=== PATIENT | male | born 1930 | race Caucasian/White ===

== ENCOUNTER 2017-08-02 13:20 | Observation (INO) ==
--- NOTE | 2017-08-02 13:57 | Emergency Department Note ---
Disposition Clinical Impression: Compression fracture Disposition: Admitted As Inpatient Condition: Good Time of Disposition: 13:59 Back Pain HPI - General Chief Complaint: ED Back Pain/Injury Stated Complaint: "broken back" Time Seen by Provider: 08/02/17 13:34 Source: patient, family Limitations: no limitations Nursing Notes Reviewed: Yes Vital Signs Reviewed: Yes - History of Present Illness HPI Narrative: 87-year-old comes in complaining of back pain was seen by pain management yesterday had MRI shows compression fractures of L1-L2 3. Patient was then here to be admitted for kyphoplasty tomorrow. Pt Subjective Complaint: back pain Onset (ago): day(s) Duration: constant Similar Symptoms Previously: Yes Location: lumbar spine Pain Severity: moderate Quality: aching Radiation: none Improves with: none Worsens with: none Associated symptoms: Reports: denies other symptoms - Related Data Home Medications Medication Instructions Recorded Confirmed Polyethylene Glycol 3350 [MiraLAX] 17 gm PO DAILY 03/21/17 08/02/17 Simvastatin [Zocor] 20 mg PO HS 03/21/17 08/02/17 Tamsulosin [Flomax] 0.4 mg PO DAILY 03/21/17 08/02/17 Aspirin 162 mg PO QAM 08/02/17 08/02/17 Cholecalciferol (D-3) [Vitamin D] 1,000 unit PO DAILY 08/02/17 08/02/17 DULoxetine [Cymbalta] 30 mg PO DAILY 08/02/17 08/02/17 Mv-Mn/FA/Vit K/Lycop/Lut/Coq10 1 tab PO DAILY 08/02/17 08/02/17 [Daily Multivitamin Capsule] [place] 7.5-325 mg 1 tab PO TID PRN 08/02/17 Selenium 100 mcg PO DAILY 08/02/17 08/02/17 hydroCHLOROthiazide 12.5 mg PO DAILY 08/02/17 08/02/17 [Hydrochlorothiazide] Allergies Allergy/AdvReac Type Severity Reaction Status Date / Time No Known Allergies Allergy Verified 04/27/17 11:22 All systems ED: reviewed and negative except as stated. Constitutional: Denies: fever, chills, weakness, weight change Eyes: Denies: eye pain, eye discharge, vision change ENT ED: Denies: ear pain, throat pain, dental pain, hearing loss, epistaxis, congestion, dysphagia Cardiovascular: Denies: chest pain, palpitations, dyspnea on exertion, edema, syncope Respiratory: Denies: cough, dyspnea, wheezes, hemoptysis, stridor Gastrointestinal: Denies: abdominal pain, nausea, vomiting, diarrhea, constipation, hematemesis, melena, hematochezia Genitourinary: Denies: urgency, dysuria, frequency, hematuria Musculoskeletal: Reports: back pain. Denies: neck pain, arthralgia, myalgia Integumentary: Denies: rash, abrasion, lesions Neurological: Denies: headache, weakness, numbness, paresthesias, confusion, abnormal gait, vertigo Psychiatric: Denies: anxiety, depression, suicidal thoughts, homicidal thoughts , auditory hallucinations, visual hallucinations Endocrine: Denies: fatigue Hematological/Lymphatic: Denies: easy bleeding, easy bruising Allergic/Immunologic: Denies: facial swelling, urticaria Past Medical History - Past Medical History Medical history: Reports: arthritis, cancer, coronary artery disease Surgical history: Reports: cholecystectomy Psychiatric history: Reports: no psych history - Social History Smoking Status: Never smoker Smokeless Tobacco Status: No Alcohol use: Reports: none Drug use: Reports: none Physical Exam - General Limitations: no limitations General appearance: alert - Head Head exam: atraumatic, normocephalic, normal inspection - Eye Eye exam: Present: normal appearance, PERRL, EOMI - ENT ENT exam: normal exam, normal oropharynx, mucous membranes moist - Neck Neck exam: Present: normal inspection, full ROM, trachea midline - Cardiovascular Cardiovascular exam: Present: regular rate, normal rhythm, normal heart sounds - Abdominal Exam Abdominal exam: Present: soft, Non-Tender. Absent: tenderness, distention, guarding, rebound, rigidity - Extremities Exam Extremities exam: Present: normal inspection, full ROM. Absent: tenderness, pedal edema - Expanded Lower Extremity Exam Neurovascular/Tendon exam: Absent: motor deficit, sensory deficit, tendon deficit Gait: observed and normal - Back Exam Back exam: Present: normal inspection, full ROM. Absent: tenderness - Neurological Exam Neurological exam: Present: alert, oriented X3 - Psychiatric Psychiatric exam: Present: normal affect, normal mood - Skin Skin exam: Present: warm, dry, intact, normal color Course - Reevaluation(s) Reevaluation #1: 87-year-old who has compression fractures and is scheduled for surgery will be admitted. Time: 13:57 - Consultations Consultation #1: Discussed with Dr. Moore, will see in consult. Time: 13:57 Consultation #2: Discussed with Dr. Dawkins, admit. Time: 14:13 Vital Signs Temperature 97.5 F L 08/02/17 13:28 Pulse Rate 69 08/02/17 13:28 Respiratory Rate 14 08/02/17 13:28 Blood Pressure 125/74 08/02/17 13:28 O2 Sat by Pulse Oximetry 98 08/02/17 13:28 Temperature 97.5 F L 08/02/17 13:28 Pulse Rate 69 08/02/17 13:28 Respiratory Rate 14 08/02/17 13:28 Blood Pressure 125/74 08/02/17 13:28 O2 Sat by Pulse Oximetry 98 08/02/17 13:28 Oxygen Delivery Oxygen Delivery Room Air Back Pain/Injury - Lab Data Lab results reviewed: Yes I reviewed the patient's lab results. Result diagrams: 08/02/17 14:07 08/02/17 14:07 Lab Results 08/02/17 08/02/17 08/02/17 Range/Units 14:07 14:07 14:07 WBC 7.6 (4.3-11.1) K/mcL RBC 4.38 (4.19-5.50) M/mcL Hgb 13.3 (12.9-16.9) g/dL Hct 40.8 (37.5-50.1) % MCV 93.2 (83.0-100.0) fL MCH 30.4 (28.0-33.3) pg MCHC 32.6 (31.6-35.5) g/dL RDW 14.9 H (11.5-14.5) % Plt Count 270 (140-400) K/mcL MPV 9.3 L (9.4-12.4) fL Immature Gran % 0.3 (0-4) % Seg Neutrophils % 64.6 % Lymphocytes % 24.5 % Monocytes % 7.6 % Eosinophils % 2.5 % Basophils % 0.5 % Neutrophils # 4.9 (1.6-8.9) K/mcL Lymphocytes # 1.9 (0.6-4.6) K/mcL Monocytes # 0.6 (0.0-1.3) K/mcL Eosinophils # 0.2 (0.0-0.6) K/mcL Basophils # 0.0 (0.0-0.2) K/mcL PT 12.2 H (9.4-12.1) Seconds INR 1.1 APTT 32.0 (26.0-36.0) Seconds Sodium 140 (136-145) mEq/L Potassium 4.1 (3.5-5.1) mEq/L Chloride 108 H (98-107) mEq/L Carbon Dioxide 28 (23-29) mEq/L BUN 18 (8-23) mg/dL Creatinine 1.19 (0.70-1.30) mg/dL Est GFR ( Amer) > 60 (> 60) Est GFR (Non-Af Amer) 58 L (> 60) BUN/Creatinine Ratio 15 (6-26) Glucose 115 H (70-105) mg/dL Calculated Osmolality 293 (280-300) Calcium 9.8 (8.6-10.3) mg/dL Urine Color (Yellow) Urine Clarity (Clear) Urine pH (5.0-8.0) pH Units Ur Specific [place] (1.010-1.025) Urine Protein (Neg-Trace) mg/dL Urine Glucose (UA) (Normal) mg/dL Urine Ketones (Negative) mg/dL Urine Blood (Negative) Urine Nitrite (Negative) Urine Bilirubin (Negative) Urine Urobilinogen (Normal) mg/dL Ur Leukocyte Esterase (Negative) Urine Microscopic RBC (0-3) per hpf Urine Microscopic WBC (0-3) per hpf Ur Squamous Epith Cells (None-Few) per lpf Calcium Oxalate Crystal Amorphous Sediment (Few) Urine Bacteria (None-Few) per hpf Hyaline Casts (None-Few) per lpf Urine Mucus (Few) Ur Culture Indicated? (NO) 08/02/17 Range/Units 14:39 WBC (4.3-11.1) K/mcL RBC (4.19-5.50) M/mcL Hgb (12.9-16.9) g/dL Hct (37.5-50.1) % MCV (83.0-100.0) fL MCH (28.0-33.3) pg MCHC (31.6-35.5) g/dL RDW (11.5-14.5) % Plt Count (140-400) K/mcL MPV (9.4-12.4) fL Immature Gran % (0-4) % Seg Neutrophils % % Lymphocytes % % Monocytes % % Eosinophils % % Basophils % % Neutrophils # (1.6-8.9) K/mcL Lymphocytes # (0.6-4.6) K/mcL Monocytes # (0.0-1.3) K/mcL Eosinophils # (0.0-0.6) K/mcL Basophils # (0.0-0.2) K/mcL PT (9.4-12.1) Seconds INR APTT (26.0-36.0) Seconds Sodium (136-145) mEq/L Potassium (3.5-5.1) mEq/L Chloride (98-107) mEq/L Carbon Dioxide (23-29) mEq/L BUN (8-23) mg/dL Creatinine (0.70-1.30) mg/dL Est GFR ( Amer) (> 60) Est GFR (Non-Af Amer) (> 60) BUN/Creatinine Ratio (6-26) Glucose (70-105) mg/dL Calculated Osmolality (280-300) Calcium (8.6-10.3) mg/dL Urine Color Dark Yellow (Yellow) Urine Clarity Hazy (Clear) Urine pH 5.5 (5.0-8.0) pH Units Ur Specific [place] 1.025 (1.010-1.025) Urine Protein 30 H (Neg-Trace) mg/dL Urine Glucose (UA) Normal (Normal) mg/dL Urine Ketones Negative (Negative) mg/dL Urine Blood Moderate H (Negative) Urine Nitrite Negative (Negative) Urine Bilirubin Small H (Negative) Urine Urobilinogen 2.0 H (Normal) mg/dL Ur Leukocyte Esterase Large H (Negative) Urine Microscopic RBC 5-15 H (0-3) per hpf Urine Microscopic WBC TNTC H (0-3) per hpf Ur Squamous Epith Cells Many H (None-Few) per lpf Calcium Oxalate Crystal Present Amorphous Sediment Moderate H (Few) Urine Bacteria None Seen (None-Few) per hpf Hyaline Casts Few (None-Few) per lpf Urine Mucus Moderate H (Few) Ur Culture Indicated? NO. A (NO) - Radiology Data Radiology results reviewed: Yes I reviewed the patient's radiology results. - EKG Data EKG attestation: Yes I reviewed and interpreted this EKG. EKG shows normal: sinus rhythm [place]/QRS: normal Interpretation: no acute changes
[2017-08-02 14:24] LABS: Basophils % 0.5 %; Eosinophils # 0.2 K/mcL (0.0-0.6); Eosinophils % 2.5 %; Hematocrit 40.8 % (37.5-50.1); Hemoglobin 13.3 g/dL (12.9-16.9); Immature Granulocytes % 0.3 % (0-4); Lymphocytes # 1.9 K/mcL (0.6-4.6); Lymphocytes % 24.5 %; Mean Corpuscular HGB Conc 32.6 g/dL (31.6-35.5); Mean Corpuscular Hemoglobin 30.4 pg (28.0-33.3); Mean Corpuscular Volume 93.2 fL (83.0-100.0); Mean Platelet Volume 9.3 fL (9.4-12.4); Monocytes # 0.6 K/mcL (0.0-1.3); Monocytes % 7.6 %; Neutrophils # 4.9 K/mcL (1.6-8.9); Platelet Count 270 K/mcL (140-400); Red Blood Count 4.38 M/mcL (4.19-5.50); Red Cell Distribution Width 14.9 % (11.5-14.5); Segmented Neutrophils % 64.6 %
[2017-08-02 14:29] LABS: INR 1.1; Prothrombin Time 12.2 Seconds (9.4-12.1)
[2017-08-02 14:34] LABS: BUN/Creatinine Ratio 15 (6-26); Blood Urea Nitrogen 18 mg/dL (8-23); Calcium 9.8 mg/dL (8.6-10.3); Carbon Dioxide 28 mEq/L (23-29); Chloride 108 mEq/L (98-107); Glucose 115 mg/dL (70-105); Osmolality,Calculated 293 (280-300); Potassium 4.1 mEq/L (3.5-5.1); Sodium 140 mEq/L (136-145); eGFR For African Americans > 60 (> 60); eGFR For Non-African Americans 58 (> 60)
[2017-08-02 14:51] LABS: Bilirubin,Urine Small (Negative); Blood,Urine Moderate (Negative); Color,Urine Dark Yellow (Yellow); Glucose,Urine (UA) Normal (Normal); Ketones,Urine Negative (Negative); Leukocyte Esterase,Urine Large (Negative); Nitrite,Urine Negative (Negative); PH,Urine 5.5 pH Units (5.0-8.0); Protein,Urine 30 mg/dL (Neg-Trace); Specific Gravity,Urine 1.025 (1.010-1.025)
[2017-08-02 14:54] LABS: Bacteria,Urine None Seen per hpf (None-Few); Squamous Epithelial Cell,Urine Many per lpf (None-Few); WBC,Urine TNTC per hpf (0-3)
[2017-08-02 14:57] LABS: Clarity,Urine Hazy (Clear)
[2017-08-02 15:09] LABS: Calcium Oxalate Crystals,Urine Present
[2017-08-02 15:10] LABS: Amorphous Sediment,Urine Moderate (Few); Hyaline Casts,Urine Few per lpf (None-Few)
[2017-08-02 15:14] LABS: Mucus,Urine Moderate (Few)
[2017-08-02] MEDS ORDERED: Naloxone 0.4 MG/ML INJ IVP PRN (17:02)
[2017-08-02] MEDS ORDERED: Acetaminophen 325 MG TABLET PO PRN (17:02)
[2017-08-02] MEDS ORDERED: *HR* OxyCODONE Immed Rel 5 MG TABLET PO PRN (17:02)
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
[2017-08-02] MEDS ORDERED: Levofloxacin 750 MG/150 ML 750 MG/150 ML BAG IVPB SCH (18:00)
[2017-08-02 20:06] LABS: Bilirubin,Urine Negative (Negative); Blood,Urine Small (Negative); Clarity,Urine Cloudy (Clear); Color,Urine Yellow (Yellow); Glucose,Urine (UA) Normal (Normal); Ketones,Urine Negative (Negative); Leukocyte Esterase,Urine Moderate (Negative); Nitrite,Urine Negative (Negative); PH,Urine 5.5 pH Units (5.0-8.0); Protein,Urine Negative (Neg-Trace); Specific Gravity,Urine 1.024 (1.010-1.025)
[2017-08-02 20:08] LABS: Hyaline Casts,Urine None Seen per lpf (None-Few); Squamous Epithelial Cell,Urine Many per lpf (None-Few); WBC,Urine 15-30 per hpf (0-3)
[2017-08-02 20:19] LABS: Calcium Oxalate Crystals,Urine Present
[2017-08-02 20:20] LABS: Bacteria,Urine Few per hpf (None-Few)
[2017-08-02] MEDS: *HR* HYDROcodone/Acet 5/325 mg TABLET PO PRN (23:21)
[2017-08-03 01:37] LABS: Basophils % 0.4 %; Eosinophils # 0.3 K/mcL (0.0-0.6); Hematocrit 36.5 % (37.5-50.1); Hemoglobin 11.9 g/dL (12.9-16.9); Immature Granulocytes % 0.3 % (0-4); Lymphocytes # 1.9 K/mcL (0.6-4.6); Mean Corpuscular HGB Conc 32.6 g/dL (31.6-35.5); Mean Corpuscular Hemoglobin 30.2 pg (28.0-33.3); Mean Corpuscular Volume 92.6 fL (83.0-100.0); Mean Platelet Volume 9.7 fL (9.4-12.4); Monocytes # 0.5 K/mcL (0.0-1.3); Monocytes % 6.6 %; Neutrophils # 5.1 K/mcL (1.6-8.9); Platelet Count 245 K/mcL (140-400); Red Blood Count 3.94 M/mcL (4.19-5.50); Segmented Neutrophils % 64.7 %
[2017-08-03 01:44] LABS: INR 1.2
[2017-08-03 01:49] LABS: Alanine Aminotransferase 8 Units/L (7-52); Albumin 3.6 g/dL (3.5-5.7); Albumin/Globulin Ratio 1.6 (1.1-2.2); Alkaline Phosphatase 69 Units/L (34-104); Aspartate Amino Transferase 13 Units/L (13-39); BUN/Creatinine Ratio 15 (6-26); Bilirubin,Total 0.5 mg/dL (0.3-1.0); Blood Urea Nitrogen 17 mg/dL (8-23); Calcium 9.3 mg/dL (8.6-10.3); Carbon Dioxide 25 mEq/L (23-29); Chloride 108 mEq/L (98-107); Chol/HDL Ratio 3.2 (0-4.9); Cholesterol 117 mg/dL (< 200); Globulin 2.3 g/dL (2.4-3.5); Glucose 139 mg/dL (70-105); HDL Cholesterol 37 mg/dL (40-59); LDL Cholesterol,Calculated 62 mg/dL (0-99); Magnesium 1.9 mg/dL (1.6-2.6); Osmolality,Calculated 292 (280-300); Potassium 3.9 mEq/L (3.5-5.1); Sodium 139 mEq/L (136-145); Total Protein 5.9 g/dL (6.4-8.9); Triglycerides 90 mg/dL (< 150); eGFR For African Americans > 60 (> 60); eGFR For Non-African Americans > 60 (> 60)
[2017-08-03] MEDS ORDERED: Cholecalciferol (D-3) 1,000 UNIT TABLET PO SCH (09:00)
[2017-08-03] MEDS ORDERED: Multivit/Ca/Min/Fe/FA 1 TAB TABLET PO SCH (09:00)
[2017-08-03] MEDS ORDERED: SELENIUM 100 MCG PO SCH (09:00)
[2017-08-03] MEDS ORDERED: hydroCHLOROthiazide 25 MG TABLET PO SCH (09:00)
[2017-08-03] MEDS ORDERED: Aspirin 81 MG TAB.CHEW PO SCH ×2 (09:00)
[2017-08-03] MEDS: *HR* HYDROcodone/Acet 5/325 mg TABLET PO PRN ×2 (09:30→16:03)
--- NOTE | 2017-08-03 10:36 | Internal Med Progress Note ---
Date of Encounter: 08/03/17 Time of Encounter: 10:34 - Assessment and plan (1) Compression fracture Current Visit: Yes Status: Acute Assessment and plan: Acute on chronic compression fxs of L1-L2. Pt. reports falling in September 2016 and "breaking his back". Reports chronic lower back pain ever since fall. Pt. was seen at pain mgmt clinic recently when MRI of lumbar spine on 07/27/17 showed mild to moderate lumbar spondylosis and no change in chronic L1 and L2 compression deformities. Pt. admitted for kyphoplasty in a.m. per Dr. Moore. Stair-step pain medication for pain mgmt. EKG and old EKG ordered. Echocardiogram ordered. NPO at midnight for a.m. procedure. Bilateral SCDs on LEs today for DVT prophylaxis to be replaced by heparin SQ post-surgery if appropriate w/surgery recommendations. Pt. discussed w/Dr. Dawkins who agrees w/plan of care. Pt. is moderate risk for further morbidity d/t current acute on chronic back pain from compression fxs in L1-L2, hx of syncope and falls most likely d/t carotid stenosis, hx, and risk factors. Observation. 08/03/2017- pain is appropriately controlled. He is awaiting kyphoplasty which will most likely be done after 5 PM tonight. I have asked with the nurses to double check with the surgeons if we could give him a few crackers or something like that for breakfast since he has been nothing by mouth since midnight. Continue SCDs for now. Patient is moderate risk for major adverse cardiovascular events going into the surgery. He verbalizes understanding and wishes to proceed with surgery. (2) HLD (hyperlipidemia) Current Visit: Yes Status: Chronic Assessment and plan: Continue simvastatin. Qualifiers: Hyperlipidemia type: unspecified Qualified Code(s): E78.5 - Hyperlipidemia , unspecified (3) HTN (hypertension) Current Visit: Yes Status: Chronic Assessment and plan: Stable, continue to monitor. Recommend holding hydrochlorothiazide today before planned surgery. Can resume tomorrow Qualifiers: Hypertension type: essential hypertension Qualified Code(s): I10 - Essential (primary) hypertension (4) CAD (coronary artery disease) Current Visit: Yes Status: Chronic Assessment and plan: Denies active chest pain. States that his exercise tolerance has at least been comfortable upto 6 METS especially in the last quarter of last year. At this point I do not think he will need further testing he is intermediate risk for major adverse cardiovascular events for the procedure. Risks were explained to the patient Qualifiers: Coronary Disease-Associated Artery/Lesion type: [place] artery [place] vs. transplanted heart: [place] heart Associated angina: angina presence unspecified Qualified Code(s): I25.10 - Atherosclerotic heart disease of [place] coronary artery without angina pectoris (5) DVT prophylaxis Current Visit: Yes Status: Acute Assessment and plan: Bilateral SCDs on LEs for DVT prophylaxis prior to kyphoplasty procedure. Postoperatively he could switch to subcutaneous heparin (6) Back pain Current Visit: Yes Status: Chronic Assessment and plan: awaiting surgery. See detailed assessment and plan as above Qualifiers: Back pain location: low back pain Chronicity: chronic Back pain laterality: midline Sciatica presence: unspecified whether sciatica present Qualified Code(s): M54.5 - Low back pain; G89.29 - Other chronic pain; G89.29 - Other chronic pain (7) UTI (urinary tract infection) Current Visit: Yes Status: Acute Assessment and plan: Urine culture is pending. Continue Levaquin for now and adjust based on culture sensitivities Qualifiers: Urinary tract infection type: site unspecified Hematuria presence: without hematuria Qualified Code(s): N39.0 - Urinary tract infection, site not specified - Time Spent With Patient Total time spent is greater than 50% in coordination of care (as documented) at patient's floor/unit and/or counseling patient: - Subjective Interval history: Patient states that his pain is well controlled and he denies any new tingling or numbness or weakness in the lower extremities. He is anxiously awaiting surgery - Constitutional Vitals: Temp Pulse Resp BP Pulse Ox 98.1 F 71 15 121/68 98 08/03/17 07:12 08/03/17 07:12 08/03/17 07:12 08/03/17 07:12 08/03/17 09:12 General appearance: Present: cooperative, mild distress, A&O X 3, pleasant Exam: GENERAL: Alert, mild distress, cooperative EYES: PERRLA, EOMI EARS: External ears normal, canals clear OROPHARYNX: Lips, mucosa, and tongue normal. Teeth and gums normal. Oropharynx normal. NECK: No jugulovenous distention, No carotid bruits, Carotid pulse normal contour, Supple LUNGS: Lungs clear to auscultation, Good diaphragmatic excursion CARDIAC: Normal S1 and S2; no rubs, murmurs, or gallops ABDOMEN: Abdomen soft, non-tender, BS normal, No masses or organomegaly Back- tenderness to palpation along L1 and L2 as well as paraspinal muscle spasm EXTREMITIES: Extremities normal, no deformities, edema, clubbing or skin discoloration. Good capillary refill., No ulcers NEURO: Gait normal. Reflexes normal and symmetric. Sensation grossly intact, Cranial nerves II-XII intact PULSES: 2+ radial, 2+ carotid Rest of the exam is non contributory Internal Medicine: Result - Labs CBC & Chem 7: 08/03/17 00:59 08/03/17 00:59 Labs: Short CBC 08/03/17 Range/Units 00:59 WBC 7.8 (4.3-11.1) K/mcL Hgb 11.9 L (12.9-16.9) g/dL Hct 36.5 L (37.5-50.1) % Plt Count 245 (140-400) K/mcL Neutrophils # 5.1 (1.6-8.9) K/mcL BMP 08/03/17 00:59 Sodium 139 Potassium 3.9 Chloride 108 H Carbon Dioxide 25 BUN 17 Creatinine 1.11 Glucose 139 H Calcium 9.3 Liver Function 08/03/17 Range/Units 00:59 Total Bilirubin 0.5 (0.3-1.0) mg/dL AST 13 (13-39) Units/L ALT 8 (7-52) Units/L Alkaline Phosphatase 69 (34-104) Units/L Albumin 3.6 (3.5-5.7) g/dL Urine 08/02/17 Range/Units 19:43 Urine Color Yellow (Yellow) Urine Clarity Cloudy A (Clear) Urine pH 5.5 (5.0-8.0) pH Units Ur Specific [place] 1.024 (1.010-1.025) Urine Protein Negative (Neg-Trace) mg/dL Urine Glucose (UA) Normal (Normal) mg/dL - ABG Interpretation ABG results: PT/INR, D-dimer PT 13.0 Seconds (9.4-12.1) H 08/03/17 00:59 - Impressions Impressions Echocardiogram 08/02/17 17:56 Impressions: LVEF 60%. Normal LV chamber size and function. Mild left ventricular diastolic dysfunction. Normal right ventricular structure and function. Mild aortic regurgitation. No evidence of pulmonary hypertension. Left Ventricular Wall Motion: Rest Echo Findings All wall segments showed normal motion. Findings: Study Quality * Technically sub-optimal due to poor echocardiographic windows. ECG Findings * Normal sinus rhythm. Left Ventricle * LVEF 60%. * Normal LV chamber size and function. Wall thickness was not well visualized or easily measured. * Mild left ventricular diastolic dysfunction. * Atypical septal motion of unclear etiology. Right Ventricle * Normal right ventricular structure and function. Left Atrium * Normal left atrial size. Right Atrium * Normal right atrial size. Interatrial Septum * Interatrial septum not well evaluated. Aortic Valve * Trileaflet aortic valve. * Mild aortic regurgitation. * No aortic stenosis. Mitral Valve * Normal mitral valve structure and function. * No mitral regurgitation. * No mitral stenosis. Tricuspid Valve * Normal tricuspid valve structure and function. * Trace tricuspid regurgitation. * No evidence of pulmonary hypertension. Pulmonic Valve * Pulmonic valve is not well visualized. Aorta * Normally sized aortic root. Pericardium * The pericardium appears normal. IVC * The IVC is not well evaluated. Pulmonary Artery * Normal visualized portions of the main pulmonary artery. - VTE Documentation of Mechanical Device: Intermittent pneumatic compression device Consult Discharge Plan - Plan Referrals: Magnus Cerna CNP [Primary Care Provider] -
--- NOTE | 2017-08-03 11:16 | Anesthesia Evaluation PreOp ---
Date of Encounter: 08/03/17 Time of Encounter: 16:50 - Past History Planned Operation: T8-9 Kyphoplasty Cardiac History: HTN (maintained on Hctz), Hyperlipidemia (maintained on Zocor) , Other (CAD no stents/vessels couldn't be stented. 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 Syncope presumed to be secondary to Carotid stenosis per H&P.), Other (Ambulates w/Cane or walker. Anxiety/Depression maintained on Cymbalta) Other Medical History: Renal (CKDz), Other (Prostate CA maintained on Flomax) Anesthesia History: No Prior Anesthetic Complications, Past Anesthesia (Kemi, R -TKA [03/2017 tolerated GA w/PNB well], Knee Manip 06/2017) Alcohol Use: none Drug use: none Medications and Allergies Polyethylene Glycol 3350 [MiraLAX] 17 gm PO DAILY 03/21/17 [History] Simvastatin [Zocor] 20 mg PO HS 03/21/17 [History] Tamsulosin [Flomax] 0.4 mg PO DAILY 03/21/17 [History] Aspirin 162 mg PO QAM 08/02/17 [History] Cholecalciferol (D-3) [Vitamin D] 1,000 unit PO DAILY 08/02/17 [History] DULoxetine [Cymbalta] 30 mg PO DAILY 08/02/17 [History] Mv-Mn/FA/Vit K/Lycop/Lut/Coq10 [Daily Multivitamin Capsule] 1 tab PO DAILY 08/02 [History] [place] 7.5-325 mg 1 tab PO TID PRN 08/02/17 [History] Selenium 100 mcg PO DAILY 08/02/17 [History] hydroCHLOROthiazide [Hydrochlorothiazide] 12.5 mg PO DAILY 08/02/17 [History] 3 Allergy/AdvReac Type Severity Reaction Status Date / Time No Known Allergies Allergy Verified 04/27/17 11:22 - Meds/Allergy Pre-op Review Medications Reviewed: Yes Allergies Reviewed: Yes Beta Blockers on Current Med List: No Anesthesia Results - Labs 08/03/17 00:59 08/03/17 00:59 Laboratory Results Laboratory Tests 08/03/17 08/03/17 00:59 00:59 PT 13.0 H INR 1.2 APTT 32.0 Sodium 139 Potassium 3.9 Chloride 108 H Carbon Dioxide 25 BUN 17 Creatinine 1.11 Est GFR (Non-Af Amer) > 60 Glucose 139 H Impressions Echocardiogram 08/02/17 17:56 Impressions: LVEF 60%. Normal LV chamber size and function. Mild left ventricular diastolic dysfunction. Normal right ventricular structure and function. Mild aortic regurgitation. No evidence of pulmonary hypertension. - Imaging EKG: image reviewed (67bpm ) Additional studies: Laboratory Results Impressions Echocardiogram 08/02/17 17:56 Impressions: LVEF 60%. Normal LV chamber size and function. Mild left ventricular diastolic dysfunction. Normal right ventricular structure and function. Mild aortic regurgitation. No evidence of pulmonary hypertension. Anesthesia Exam Vital Signs Temp Pulse Resp BP Pulse Ox 08/03/17 10:47 98.2 F 68 15 122/65 96 08/03/17 09:12 98 08/03/17 07:12 98.1 F 71 15 121/68 96 08/03/17 03:19 98.1 F 77 18 122/69 96 08/02/17 23:16 98.4 F 76 18 144/75 98 08/02/17 19:56 98.4 F 75 16 110/73 97 08/02/17 15:57 98.1 F 69 16 155/68 99 08/02/17 15:50 16 147/69 08/02/17 13:28 97.5 F L 69 14 125/74 98 Intake and Output 08/02/17 08/03/17 08/03/17 23:59 07:59 15:59 Intake Total 0 / 0 0 / 0 Output Total 125 / 125 225 / 225 350 / 350 Balance -125 / -125 -225 / -225 -350 / -350 Intake: Oral 0 / 0 0 / 0 Output: Urine 125 / 125 225 / 225 350 / 350 Other: # Voids 1 Height: 6'1 Weight: 185# bmi = 25 NPO (# of Hours): mnoC - HEENT Pupil (Motor): Pupils equal Mallampati: II Teeth: Edentulous Oral Opening: Greater than 3 - 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 Motor: Normal RUE, Normal LUE, Normal Face, Deficit RLE, Deficit LLE ASSISTANT MANAGER [employer]IRSIDE [employer]PERATIONS Sensory: Normal: RUE, LUE, Face, Deficit: RLE, LLE - Cardiac Rhythm: Regular Murmur: None - Pulmonary Breath Sounds: bilateral Clear Respiratory Effort: Symmetrical Anesthesia Assess/Plan ASA Score: 3 (Prostate Ca, HTN, CAD, Syncope, Chol) Modified [place] Scale for Level of Consciousness: Cooperative, oriented, and tranquil Anesthetic Plan: General Monitoring Plan: Standard Monitors Recovery Plan: PACU Anes Supervising Prov Stmt: Pt seen/evaluated, R&B Discussed, questions answered and consent obtained. Santana Donis MD
[2017-08-03] MEDS ORDERED: *HR* FentaNYL (PF) 100 MCG/2 ML VIAL ONE ×2 (14:57→17:12)
[2017-08-03] MEDS ORDERED: Bupivacaine/EPI 1:200k 0.25%PF 10 ML VIAL INFILT ONE (16:47)
[2017-08-03] MEDS ORDERED: Lidocaine/EPI 1:100k 2% 20 ML VIAL ONE (16:47)
[2017-08-03] MEDS ORDERED: Isovue-300 50 ML VIAL IVP ONE (16:48)
[2017-08-03] MEDS ORDERED: Ondansetron 4 MG/2 ML VIAL ONE (17:12)
[2017-08-03] MEDS ORDERED: Dexamethasone 4 MG/ML VIAL ONE (17:12)
[2017-08-03] MEDS ORDERED: Lidocaine -MPF 4% 5 ML AMPUL ONE (17:12)
[2017-08-03] MEDS ORDERED: Lidocaine -MPF 2% 2 ML VIAL ONE (17:12)
[2017-08-03] MEDS ORDERED: *HR* Propofol 200 MG/20 ML VIAL IVP ONE (17:13)
--- NOTE | 2017-08-03 17:18 | Pain Management History & Phys ---
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 All questions were answered. Consent was obtained today. The daughter was not present for the consent but the patient appeared to understand all the risks involved to include bruising, bleeding, infection, failure for this to solve the pain, spinal cord injury, paralysis, hematoma, and allergic reactions to the medications and bone cement. The patient has a compression fracture that severe at L1 as well as some moderate compression fracture at L2. My intent is to address both but if L1 in particular cannot be performed safely and we will not move forward with performing that procedure. Patient desires to move forward. Consent obtained in the presence of the RN (Allen). History of Present Illness Chief complaint: back pain HPI: Mr. Hayes is a 87 year old male With a long history of back pain suspiciously related to an area of the thoracic lumbar junction that has failed more conservative measures. The patient has been reported to have physical therapy in intermediate as well as other medications for the purpose of pain. Patient has not done well with more conservative measures. The patient still has pain in the mid to lower back that affects his ability to take care of himself and function. The patient reports no radiating pain periods point tender over the upper lumbar spine consistent with known fractures. The patient reports no new symptoms. The pain is a dull boring back ache that has sharp qualities to it as well. The patient was admitted through the emergency room for the purpose of preoperative planning an add-on for kyphoplasty today. The patient is reported to have no new symptoms at this time. Past Med Surg Social Fam HX - Past Medical History Medical history: arthritis, cancer (Prostate), coronary artery disease (No stents) Psychiatric history: no psych history - Past Surgical History Surgical History: cholecystectomy, orthopedic, other (Rt. knee) - Social History Smoking Status: Never smoker Smokeless Tobacco Status: No Alcohol use: none Drug use: none - Family History Sister Race: Family Member Ethnicity: Non- Living Status: Still Living Hx Family Cardiac Disorders: Yes (NM) Hx Family Medical Disorders: No Father History Unknown: Yes Race: Family Member Ethnicity: Non- Living Status: Cause of : Accident Mother Race: Family Member Ethnicity: Non- Living Status: Age at : 67 Cause of : Metastatic cancer Hx Family Cancer: Yes (Metastatic) Brother Race: Family Member Ethnicity: Non- Living Status: Age at : 85 Cause of : Prostate cancer Hx Family Cancer: Yes (Prostate) Medications and Allergies Polyethylene Glycol 3350 [MiraLAX] 17 gm PO DAILY 03/21/17 [History] Simvastatin [Zocor] 20 mg PO HS 03/21/17 [History] Tamsulosin [Flomax] 0.4 mg PO DAILY 03/21/17 [History] Aspirin 162 mg PO QAM 08/02/17 [History] Cholecalciferol (D-3) [Vitamin D] 1,000 unit PO DAILY 08/02/17 [History] DULoxetine [Cymbalta] 30 mg PO DAILY 08/02/17 [History] Mv-Mn/FA/Vit K/Lycop/Lut/Coq10 [Daily Multivitamin Capsule] 1 tab PO DAILY 08/02 [History] [place] 7.5-325 mg 1 tab PO TID PRN 08/02/17 [History] Selenium 100 mcg PO DAILY 08/02/17 [History] hydroCHLOROthiazide [Hydrochlorothiazide] 12.5 mg PO DAILY 08/02/17 [History] 3 Allergy/AdvReac Type Severity Reaction Status Date / Time No Known Allergies Allergy Verified 04/27/17 11:22 Review of Systems - Constitutional Constitutional ROS IM: as per HPI - Cardiovascular Cardiovascular ROS: no chest pain, no leg edema, no lightheadedness - Respiratory Respiratory: no pain on inspiration, no pain with cough - Gastrointestinal Gastrointestinal: no abdominal pain, no constipation, no diarrhea, no heartburn - Genitourinary Genitourinary ROS: no difficulty urinating, no flank pain, no urinary hesitancy - Musculoskeletal Musculoskeletal ROS: as per HPI - Integumentary Integumentary: no erythema, no lesions, no swelling - Neurological Neurological ROS: as per HPI - Psychiatric Psychiatric general: as per HPI - Hematologic/Lymphatic Hematologic/Lymphatic pediatric: no easy bleeding, no easy bruising Physical Exam Initial Vital Signs Temp Pulse Resp BP Pulse Ox 97.5 F L 69 14 125/74 98 08/02/17 13:28 08/02/17 13:28 08/02/17 13:28 08/02/17 13:28 08/02/17 13:28 - General physical appearance General physical appearance: awake & oriented, no distress, moderate pain - Eyes Eye exam: normal ocular movement - Respiratory normal expansion, normal respiratory effort - Cardiovascular Cardiovascular exam: Present: RRR - Integumentary Integumentary general surgery: no rash, no growths - Neurologic normal coordination - Musculoskeletal Musculoskeletal: kyphosis, point tenderness over spinal process (TTP over the L1 and L2 SP's. ) - Psychiatric Psychiatric: oriented to time, oriented to person, oriented to place Results - Labs 08/03/17 00:59 08/03/17 00:59 Abnormal lab results RBC 3.94 M/mcL (4.19-5.50) L 08/03/17 00:59 Hgb 11.9 g/dL (12.9-16.9) L 08/03/17 00:59 Hct 36.5 % (37.5-50.1) L 08/03/17 00:59 RDW 15.0 % (11.5-14.5) H 08/03/17 00:59 PT 13.0 Seconds (9.4-12.1) H 08/03/17 00:59 Chloride 108 mEq/L (98-107) H 08/03/17 00:59 Glucose 139 mg/dL (70-105) H 08/03/17 00:59 Serum Total Protein 5.9 g/dL (6.4-8.9) L 08/03/17 00:59 Globulin 2.3 g/dL (2.4-3.5) L 08/03/17 00:59 HDL Cholesterol 37 mg/dL (40-59) L 08/03/17 00:59 Urine Clarity Cloudy (Clear) A 08/02/17 19:43 Urine Blood Small (Negative) H 08/02/17 19:43 Urine Urobilinogen 2.0 mg/dL (Normal) H 08/02/17 19:43 Ur Leukocyte Esterase Moderate (Negative) H 08/02/17 19:43 Urine Microscopic RBC 5-15 per hpf (0-3) H 08/02/17 19:43 Urine Microscopic WBC 15-30 per hpf (0-3) H 08/02/17 19:43 Ur Squamous Epith Cells Many per lpf (None-Few) H 08/02/17 19:43 Amorphous Sediment Moderate (Few) H 08/02/17 14:39 Urine Mucus Moderate (Few) H 08/02/17 14:39 Ur Culture Indicated? NO. (NO) A 08/02/17 19:43 Diabetes panel 08/03/17 Range/Units 00:59 Sodium 139 (136-145) mEq/L Potassium 3.9 (3.5-5.1) mEq/L Chloride 108 H (98-107) mEq/L Carbon Dioxide 25 (23-29) mEq/L BUN 17 (8-23) mg/dL Creatinine 1.11 (0.70-1.30) mg/dL Glucose 139 H (70-105) mg/dL Calcium 9.3 (8.6-10.3) mg/dL AST 13 (13-39) Units/L ALT 8 (7-52) Units/L Alkaline Phosphatase 69 (34-104) Units/L Albumin 3.6 (3.5-5.7) g/dL Triglycerides 90 (< 150) mg/dL HDL Cholesterol 37 L (40-59) mg/dL Calcium panel 08/03/17 Range/Units 00:59 Calcium 9.3 (8.6-10.3) mg/dL Albumin 3.6 (3.5-5.7) g/dL Pituitary panel 08/03/17 Range/Units 00:59 Sodium 139 (136-145) mEq/L Potassium 3.9 (3.5-5.1) mEq/L Chloride 108 H (98-107) mEq/L Carbon Dioxide 25 (23-29) mEq/L BUN 17 (8-23) mg/dL Creatinine 1.11 (0.70-1.30) mg/dL Glucose 139 H (70-105) mg/dL Calcium 9.3 (8.6-10.3) mg/dL Adrenal panel 08/03/17 Range/Units 00:59 Sodium 139 (136-145) mEq/L Potassium 3.9 (3.5-5.1) mEq/L Chloride 108 H (98-107) mEq/L Carbon Dioxide 25 (23-29) mEq/L BUN 17 (8-23) mg/dL Creatinine 1.11 (0.70-1.30) mg/dL Glucose 139 H (70-105) mg/dL Calcium 9.3 (8.6-10.3) mg/dL Total Bilirubin 0.5 (0.3-1.0) mg/dL AST 13 (13-39) Units/L ALT 8 (7-52) Units/L Alkaline Phosphatase 69 (34-104) Units/L Albumin 3.6 (3.5-5.7) g/dL All other labs normal. - VTE Documentation of Mechanical Device: Intermittent pneumatic compression device
[2017-08-03] MEDS ORDERED: Bacitracin 50,000 UNIT, Polymyxin B Sulfate 500,000 UNIT, Sodium Chloride IRRigation 1,... IR ONE (17:30)
[2017-08-03 17:48] LABS: Estimated Average Glucose 108 mg/dl; Hemoglobin A1C 5.4 %
[2017-08-03] MEDS ORDERED: Ondansetron 4 MG/2 ML VIAL IVP ONE (18:48)
[2017-08-03] MEDS ORDERED: *HR* Labetalol 20 MG/4 ML SYRINGE IVP PRN (18:48)
[2017-08-03] MEDS ORDERED: *HR* FentaNYL (PF) 100 MCG/2 ML VIAL IVP PRN (18:48)
--- NOTE | 2017-08-03 19:51 | Pain Management Procedure Note ---
Date of procedure: 08/03/17 Pre-op diagnosis: Osteoporosis, Compression fracture of lumbar 1, 2 related to osteoporosis Post-op diagnosis: same Procedure: Preoperative diagnosis: Osteoporosis Osteoporosis related compression fracture at L1 and L2 Postoperative diagnosis: Same Procedure: 1. L1 and L2 vertebral body balloon-augmented vertebral compression fracture repair under fluoroscopy (Kyphon) Indication: Patient has severe pain in his mid back when activity is attempted. He walks with an assist device. The patient has a difficult time maintaining activities of daily living and quality life. Without further management the patient's quality of life would deteriorate and prevent him from maintaining basic health. Similarly the patient suffers from prostate cancer and requires basic activity to maintain good bone strength and need for movement and to attend his chemotherapy sessions. Clinic note: 87-year-old male with a history of osteoporosis who presents today for kyphoplasty. There are no contraindications to the procedure. The patient's past medical history, surgical history, medications, allergies and laboratory values were all reviewed. The patient's MRI was obtained and reviewed prior to deciding to move forward with compression fracture augmentation. The risks, benefits and alternatives to the intended procedure were previously explained to the patient and informed consent was obtained. Procedure in detail: The patient was taken to the operating room. The patient was connected to standard ASA monitors. Sign in was performed per hospital protocol. Anesthesia was then induced per the anesthesia care team. Once intubation was performed safely, the patient was rotated into a prone, padded position on the Oj table. The patient was then sterilely prepped and draped in a surgical fashion. Timeout was then performed per hospital protocol. I wore a hat, mask and gown as well as sterile technique throughout the procedure. Biplanar fluoroscopy was used to identify the L1 vertebral level. A Quincke spinal needle was used to romulo the right pedicle shadow. Under lateral view, the segments were aligned. Under AP view the pedicle shadow's were clearly identified. Bupivacaine 0.25% mixed with 1 and 200,000 epinephrine 3-4 mL was administered subcutaneously in the area of the pedicle shadow under AP view. An 11 blade was used to make a skin kaci in the right pedicle shadow. A bone trocar in cannula was obtained and under serial AP and lateral views, the trocar was advanced in a transpedicular fashion until it broached the posterior border of the vertebral body. Once in proper position I removed the trocar, and advanced a bone biopsy needle and obtained a core biopsy. I then advanced a second cannula and trocar through the left pedicle shadow in a similar fashion. I then used a bone drill and bilaterally channeled to the anterior one third of each vertebral body. I then obtained for balloon tamps and placed to at each level. I then inflated the 10 mm balloons under intermittent continuous fluoroscopy. At L1, the max pressures were 100 psi. In each balloon tamp contained 1 mL of Isovue 300 M. I then deflated the balloon's at each level and remove them. I placed the cement delivery system in the left cannula, and blocked the right cannula with a trocar needle. I then administered a 1 mL of bone cement at this level. I then removed the cement delivery system and inserted on the right side after removing the trocar. The left cannula was then removed after a trocar was placed inside of it. I then delivered 1 mL of cement on the right. SECOND LEVEL I then identified the L2 vertebral level and perform the same procedure. After aligning the right pedicle shadow at L2, I administered a small amount of bupivacaine and made a skin incision with the 11 blade. I then advanced the trocar and anchored it at the 3:00 bony margin at the right L2 pedicle shadow. I then advanced the trocar in a transpedicular fashion until it reached the appropriate position within the posterior aspect of the L2 vertebral body. I then perform the same procedure on the left placing a second trocar. I then obtained a bone biopsy on the right. I then used the drill and channeled anteriorly on both sides to the anterior one third. I then inserted the balloon tamps on each side and inflated them. On the left the max pressure was 145 psi with 3 mL within the balloon. On the right side it was 200 psi and 3 mL within the balloon. After deflating the balloons I administered the bone cement (quick to dough) on the left in the amount of 2.4 mL of cement and on the right and the amount of 2.8 mL of cement. There was good spread within the vertebral body. I then removed the cement delivery system, and inserted the bone trocar within the left cannula and removed it and then removed the right side in a similar fashion. After cannulae were removed, the patient received Dermabond and dressings were applied. The patient was then undraped, gradually extubated per anesthesia care team and taken recovering observed. At the time this dictation, the patient demonstrated no postoperative complications. The plan will be to have the patient return to the orthopedic floor on 3 NE for recovery and observation. Anesthesia: GETA Surgeon: Romulo Moore Was there an litigation assistant present: No Estimated blood loss (cc): 5 Specimen: Vertebral body core biopsy at L1 and L2. Pathology: other (Sent biopsy in permanent presevative for path eval.) Condition: stable Disposition: PACU
[2017-08-03] MEDS ORDERED: Acetaminophen IV 1,000 MG/100 ML INFUS..BTL IVPB ONE (20:16)
--- NOTE | 2017-08-03 20:49 | Anesthesia Evaluation Post Op ---
Date of Encounter: 08/03/17 Time of Encounter: 21:00 - Vital Signs Vital Signs: Vital Signs/O2 Sat/Glucose, Most Current Temp Pulse Resp BP Pulse Ox 08/03/17 20:45 98.2 F 72 18 146/75 100 08/03/17 20:35 71 18 146/68 100 08/03/17 20:25 65 18 145/78 100 08/03/17 20:15 98.2 F 67 18 155/73 99 08/03/17 20:05 68 16 158/83 99 08/03/17 19:55 62 16 158/76 98 08/03/17 19:45 98.4 F 78 16 186/88 100 - Lungs Lungs: Clear Ascult./Percussion - Airway Airway: Non-obstructed - Cardiovascular Regular Rate - Mental Status Mental Status: Alert & Oriented, Answers Appropriately - Pain Pain Scale: 1 - Nausea Vomiting Nausea Vomiting: Not Present - Hydration Hydration: Ice chips - Discharge PostOp Status: Transfer Patient to floor
[2017-08-03] MEDS ORDERED: Acetaminophen 325 MG TABLET PO PRN (21:11)
[2017-08-03] MEDS ORDERED: Naloxone 0.4 MG/ML INJ IVP PRN (21:11)
[2017-08-03] MEDS ORDERED: *HR* Promethazine 25 MG/ML VIAL IVP PRN (21:36)
[2017-08-04 03:01] LABS: Basophils % 0.1 %; Hematocrit 36.9 % (37.5-50.1); Hemoglobin 12.4 g/dL (12.9-16.9); Immature Granulocytes % 0.4 % (0-4); Lymphocytes # 0.5 K/mcL (0.6-4.6); Mean Corpuscular HGB Conc 33.6 g/dL (31.6-35.5); Mean Corpuscular Hemoglobin 31.2 pg (28.0-33.3); Mean Corpuscular Volume 92.7 fL (83.0-100.0); Mean Platelet Volume 10.1 fL (9.4-12.4); Monocytes # 0.1 K/mcL (0.0-1.3); Monocytes % 0.8 %; Neutrophils # 7.9 K/mcL (1.6-8.9); Platelet Count 238 K/mcL (140-400); Red Blood Count 3.98 M/mcL (4.19-5.50); Red Cell Distribution Width 14.7 % (11.5-14.5); Segmented Neutrophils % 92.7 %
[2017-08-04 03:19] LABS: Alanine Aminotransferase 11 Units/L (7-52); Albumin 3.5 g/dL (3.5-5.7); Albumin/Globulin Ratio 1.3 (1.1-2.2); Alkaline Phosphatase 69 Units/L (34-104); Aspartate Amino Transferase 20 Units/L (13-39); BUN/Creatinine Ratio 15 (6-26); Bilirubin,Total 0.6 mg/dL (0.3-1.0); Blood Urea Nitrogen 15 mg/dL (8-23); Calcium 9.2 mg/dL (8.6-10.3); Carbon Dioxide 22 mEq/L (23-29); Chloride 108 mEq/L (98-107); Globulin 2.7 g/dL (2.4-3.5); Glucose 138 mg/dL (70-105); Osmolality,Calculated 293 (280-300); Potassium 4.2 mEq/L (3.5-5.1); Sodium 140 mEq/L (136-145); Total Protein 6.2 g/dL (6.4-8.9); eGFR For African Americans > 60 (> 60); eGFR For Non-African Americans > 60 (> 60)
[2017-08-04] MEDS: *HR* HYDROcodone/Acet 5/325 mg TABLET PO PRN ×2 (08:55→15:23)
[2017-08-04] MEDS ORDERED: Cholecalciferol (D-3) 1,000 UNIT TABLET PO SCH (09:00)
[2017-08-04] MEDS ORDERED: SELENIUM 100 MCG PO SCH (09:00)
[2017-08-04] MEDS ORDERED: Multivit/Ca/Min/Fe/FA 1 TAB TABLET PO SCH (09:00)
[2017-08-04] MEDS ORDERED: *HR* HYDROcodone/Acet 7.5/325 mg TABLET PO PRN (12:10)
--- NOTE | 2017-08-04 12:14 | Pain Management Progress Note ---
Date of Encounter: 08/04/17 Time of Encounter: 12:11 - Assessment and Plan (1) Age-related osteoporosis with current pathological fracture of vertebra Current Visit: Yes Status: Resolved POD#1 L1, L2 kyphoplasty. He is doing well. New dressing today but can come off tomorrow. Ok to shower tomorrow or later today. D/c instruction given to RN. Keep scheduled postop visit 1 week. Has pain meds at home, but should not need more than tylenol anyway. Patient should call if there are any further concerns. Ok to d/c from my standpoint today. Subjective Patient reports: no new complaints, feels better, pain is less, tolerating liquids well Objective Vital Signs - Last 8 Hours Temp Pulse Resp BP Pulse Ox 08/04/17 11:03 97.9 F 74 16 128/72 98 08/04/17 06:49 97.6 F 73 15 129/62 96 Intake and Output 08/03/17 08/04/17 08/04/17 23:59 07:59 15:59 Intake Total 0 / 0 360 / 360 Output Total 180 / 180 350 / 350 150 / 150 Balance -180 / -180 -350 / -350 210 / 210 Intake: Oral 0 / 0 360 / 360 Output: Urine 175 / 175 350 / 350 150 / 150 Estimated Blood Loss 5 / 5 Other: # Voids 0 Weight 82.3 kg Patient Weight 08/04/17 23:59 Weight 82.3 kg - General physical appearance no pain - Eyes PERRL - Incision Incision: Present: clean and dry, intact, approximated - Labs 08/04/17 01:11 08/04/17 01:11 Diabetes panel 08/03/17 08/04/17 Range/Units 00:59 01:11 Sodium 140 (136-145) mEq/L Potassium 4.2 (3.5-5.1) mEq/L Chloride 108 H (98-107) mEq/L Carbon Dioxide 22 L (23-29) mEq/L BUN 15 (8-23) mg/dL Creatinine 1.03 (0.70-1.30) mg/dL Glucose 138 H (70-105) mg/dL Hemoglobin A1c 5.4 ( - 5.6) % Calcium 9.2 (8.6-10.3) mg/dL AST 20 (13-39) Units/L ALT 11 (7-52) Units/L Alkaline Phosphatase 69 (34-104) Units/L Albumin 3.5 (3.5-5.7) g/dL Calcium panel 08/04/17 Range/Units 01:11 Calcium 9.2 (8.6-10.3) mg/dL Albumin 3.5 (3.5-5.7) g/dL Pituitary panel 08/04/17 Range/Units 01:11 Sodium 140 (136-145) mEq/L Potassium 4.2 (3.5-5.1) mEq/L Chloride 108 H (98-107) mEq/L Carbon Dioxide 22 L (23-29) mEq/L BUN 15 (8-23) mg/dL Creatinine 1.03 (0.70-1.30) mg/dL Glucose 138 H (70-105) mg/dL Calcium 9.2 (8.6-10.3) mg/dL Adrenal panel 08/04/17 Range/Units 01:11 Sodium 140 (136-145) mEq/L Potassium 4.2 (3.5-5.1) mEq/L Chloride 108 H (98-107) mEq/L Carbon Dioxide 22 L (23-29) mEq/L BUN 15 (8-23) mg/dL Creatinine 1.03 (0.70-1.30) mg/dL Glucose 138 H (70-105) mg/dL Calcium 9.2 (8.6-10.3) mg/dL Total Bilirubin 0.6 (0.3-1.0) mg/dL AST 20 (13-39) Units/L ALT 11 (7-52) Units/L Alkaline Phosphatase 69 (34-104) Units/L Albumin 3.5 (3.5-5.7) g/dL - VTE Documentation of Mechanical Device: Intermittent pneumatic compression device Consult Discharge Plan - Plan Referrals: Magnus Cerna CNP [Primary Care Provider] -
--- NOTE | 2017-08-04 13:28 | Discharge Summary ---
Orders not resulted at time of discharge: Pending orders 08/02/17 17:33 ECG 12 lead ECG [ECG] Stat 08/03/17 17:55 XR lumbar spine w obl [XR] Routine 08/03/17 19:49 Surgical Pathology [PTH] Routine 08/05/17 04:00 Complete Blood Count [HEME] AM 0400 Comprehensive Metabolic Panel AM 0400 08/06/17 04:00 Complete Blood Count [HEME] AM 0400 Comprehensive Metabolic Panel AM 0400 08/07/17 04:00 Complete Blood Count [HEME] AM 0400 Comprehensive Metabolic Panel AM 0400 Date of Encounter: 08/04/17 Time of Encounter: 13:30 - Discharge Diagnosis (1) Compression fracture Priority: Primary Status: Acute Assessment and Plan: Acute on chronic compression fxs of L1-L2. Pt. reports falling in September 2016 and "breaking his back". Reports chronic lower back pain ever since fall. Post op day 1 s/p L1, L2 kyhoplasty. Tolerated procedure well with no acute complications. Clear to d/c home from pain medicine standpoint. Will follow up with them outpt (2) HLD (hyperlipidemia) Priority: Secondary Status: Chronic Assessment and Plan: Continue simvastatin. Qualifiers: Hyperlipidemia type: unspecified Qualified Code(s): E78.5 - Hyperlipidemia , unspecified (3) HTN (hypertension) Priority: Secondary Status: Chronic Assessment and Plan: Stable, continue to monitor. Resume HCTZ Qualifiers: Hypertension type: essential hypertension Qualified Code(s): I10 - Essential (primary) hypertension (4) CAD (coronary artery disease) Priority: Secondary Status: Chronic Assessment and Plan: Denies active chest pain. States that his exercise tolerance has at least been comfortable upto 6 METS especially in the last quarter of last year. Stable. tolerated surgery well Qualifiers: Coronary Disease-Associated Artery/Lesion type: andreafski artery [place] vs. transplanted heart: andreafski heart Associated angina: angina presence unspecified Qualified Code(s): I25.10 - Atherosclerotic heart disease of andreafski coronary artery without angina pectoris (5) DVT prophylaxis Priority: Secondary Status: Acute Assessment and Plan: Bilateral SCDs on LEs for DVT prophylaxis prior to kyphoplasty procedure. Postoperatively he could switch to subcutaneous heparin (6) Back pain Priority: Secondary Status: Chronic Assessment and Plan: s/p kyphoplasty.Tolerated procedure well Qualifiers: Back pain location: low back pain Chronicity: chronic Back pain laterality: midline Sciatica presence: unspecified whether sciatica present Qualified Code(s): M54.5 - Low back pain; G89.29 - Other chronic pain; G89.29 - Other chronic pain (7) UTI (urinary tract infection) Priority: Secondary Status: Acute Assessment and Plan: Urine culture is pending. Continue Levaquin for now and adjust based on culture sensitivities Qualifiers: Urinary tract infection type: site unspecified Hematuria presence: without hematuria Qualified Code(s): N39.0 - Urinary tract infection, site not specified Hospital course: Mr. Hayes is a 87 year old male - Time Spent with Patient Total time spent providing and/or coordinating discharge services: - Discharge Medications Prescriptions: Levofloxacin [Levaquin] 500 mg PO DAILY #3 tablet Home Medications: Polyethylene Glycol 3350 [MiraLAX] 17 gm PO DAILY 03/21/17 [History] Simvastatin [Zocor] 20 mg PO HS 03/21/17 [History] Tamsulosin [Flomax] 0.4 mg PO DAILY 03/21/17 [History] Aspirin 162 mg PO QAM 08/02/17 [History] Cholecalciferol (D-3) [Vitamin D] 1,000 unit PO DAILY 08/02/17 [History] DULoxetine [Cymbalta] 30 mg PO DAILY 08/02/17 [History] Mv-Mn/FA/Vit K/Lycop/Lut/Coq10 [Daily Multivitamin Capsule] 1 tab PO DAILY 08/02 [History] [place] 7.5-325 mg 1 tab PO TID PRN 08/02/17 [History] Selenium 100 mcg PO DAILY 08/02/17 [History] hydroCHLOROthiazide [Hydrochlorothiazide] 12.5 mg PO DAILY 08/02/17 [History] Acetaminophen [Tylenol] 650 mg PO Q6H PRN tablet 08/04/17 [Rx] Levofloxacin [Levaquin] 500 mg PO DAILY #3 tablet 08/04/17 [Rx] Allergies/Adverse Reactions: 3 Allergy/AdvReac Type Severity Reaction Status Date / Time No Known Allergies Allergy Verified 04/27/17 11:22 Date of admission: 08/02/17 15:19 Primary care physician: Magnus Cerna CNP Consults: 08/02/17 16:30 Consult to Nutrition [CONS] Routine Comment: Consulting Provider: NUTRITION Reason for Dietary Consult: MST Score Consult to [place] [CONS] Routine Reason for SW Consult: DISCHARGE PLANNING 08/02/17 17:06 Consult to Occupational Therapy [CONS] Routine Comment: Evaluate, develop and implement POC Reason for Consult: Patient reports problems w/ambulation d/t chronic back pain and hx of syncope. Pt. also reports having rehabilitation previously to help w/ambulation but pain became too great. Please assess post-kyphoplasty for possible rehabilitation needs per Dr. Moore's recommendations. Does patient have active BEDREST order?: Yes Is patient medically & hemodynamically stable?: Yes Patient assessed for mobility or mobilized this visit?: No 08/02/17 17:10 Consult to Physical Therapy [CONS] Routine Comment: Evaluate, develop and implement POC Reason for Consult: Patient reports problems w/ambulation d/t chronic back pain and hx of syncope. Pt. also reports having rehabilitation previously to help w/ambulation but pain became too great. Please assess post-kyphoplasty for possible rehabilitation needs per Dr. Moore's recommendations. Does patient have active BEDREST order?: Yes Is patient medically & hemodynamically stable?: Yes Patient assessed for mobility or mobilized this visit?: No - Constitutional Vitals: Temp Pulse Resp BP Pulse Ox 97.9 F 74 16 128/72 98 08/04/17 11:03 08/04/17 11:03 08/04/17 11:03 08/04/17 11:03 08/04/17 11:03 General appearance: Present: cooperative, mild distress, A&O X 3, pleasant - Patient Status Disposition: Home, Self-Care Functional capacity at discharge: uses cane/walker - Discharge Instructions Follow Up With: Melissa Diaz PAC [Physician Child Protective Services Specialist] - 08/16/17 9:45 am Additional Instructions: Discharge Instructions: Lumbar Please call [facility] ([phone]), your Primary Care Physician, or report to the ER if you have any of the following symptoms: Fever greater that 101.5, increased pain/redness/drainage/odor for your incision site or any other concerning symptoms. ACTIVITY * May Shower * No Tub Baths * No lifting greater than 10 pounds * No Smoking * No Swimming * No off Ground Activities (Running, Climbing, Ladders, Horseback Riding) * No Driving MEDICATIONS: Upon discharge resume your home medications. Take all the medications as prescribed. Take a stool softener if taking narcotic pain medications. Stool softeners are only effective if you drink enough fluids. Drink 6-8 glass of water or fluids a day, unless this is not allowed for another health problem. Despite using stool softeners, if you haven't had a bowel movement in 3 days, please switch to a gentle laxative. Gentle laxatives are sold over the counter. You should have a bowel movement within 24 hours, if not call the office. You will be discharged from the hospital with a prescription for pain medication. You are encouraged to decrease the use of narcotic pain medication as tolerated. Should you require a refill, please call the office. It is best to call 48-72 hours in advance of needing a prescription refill so you don't run out of medication. WOUND CARE: Remove Dressing Tomorrow. Leave incision open to air. Pat dry when you get out of the shower. FOLLOW-UP: Please follow up with your surgeon in the orthopedic clinic in 2 weeks from the day of surgery. References: [employer] (www.apta.org) - VTE Documentation of Mechanical Device: Intermittent pneumatic compression device
[2017-08-04 15:24] VITALS: BP 112/64
--- NOTE | 2017-08-04 17:58 | Physician Discharge Referral ---
Home Health/Hosp Referral Info Transfer to: Home Health - Diagnosis (1) Compression fracture Status: Acute (2) HLD (hyperlipidemia) Status: Chronic (3) HTN (hypertension) Status: Chronic (4) CAD (coronary artery disease) Status: Chronic (5) DVT prophylaxis Status: Acute (6) Back pain Status: Chronic (7) UTI (urinary tract infection) Status: Acute - Respiratory Orders Smoking Cessation: Smoking cessation has been advised. For more information, call the [place] Tobacco Quit Line at 9-790-YZGY-NOW. - Diet/Nutrition Diet/Nutrition Orders: Regular - Activity Activity Orders: Walker - Services Needed Following services are medically necessary services: Nursing, Home Health Aide, Physical Therapy, Occupational Therapy - Transfer Medications Prescriptions: Levofloxacin [Levaquin] 500 mg PO DAILY #3 tablet Home Medications: Polyethylene Glycol 3350 [MiraLAX] 17 gm PO DAILY 03/21/17 [History] Simvastatin [Zocor] 20 mg PO HS 03/21/17 [History] Tamsulosin [Flomax] 0.4 mg PO DAILY 03/21/17 [History] Aspirin 162 mg PO QAM 08/02/17 [History] Cholecalciferol (D-3) [Vitamin D] 1,000 unit PO DAILY 08/02/17 [History] DULoxetine [Cymbalta] 30 mg PO DAILY 08/02/17 [History] Mv-Mn/FA/Vit K/Lycop/Lut/Coq10 [Daily Multivitamin Capsule] 1 tab PO DAILY 08/02 [History] [place] 7.5-325 mg 1 tab PO TID PRN 08/02/17 [History] Selenium 100 mcg PO DAILY 08/02/17 [History] hydroCHLOROthiazide [Hydrochlorothiazide] 12.5 mg PO DAILY 08/02/17 [History] Acetaminophen [Tylenol] 650 mg PO Q6H PRN tablet 08/04/17 [Rx] Levofloxacin [Levaquin] 500 mg PO DAILY #3 tablet 08/04/17 [Rx] Allergies/Adverse Reactions: 3 Allergy/AdvReac Type Severity Reaction Status Date / Time No Known Allergies Allergy Verified 04/27/17 11:22 Certification: Further, I certify that my clinical findings support that this patient is homebound (i.e. absences from home require considerable and taxing effort and are for medical reasons or [facility] or infrequently or short duration when for other reasons) because: Homebound Reason: Patient requires assistance of a person or device to safely leave home Attestation: My signature below is to certify that this patient is under my care and that I, or nurse practitioner, or a physician's state tested nursing assistant working with me, has a face-to -face encounter with this patient.
[2017-08-04] MEDS ORDERED: Levofloxacin 750 MG/150 ML 750 MG/150 ML BAG IVPB SCH (18:00)
--- NOTE | 2017-08-05 18:15 | Electrocardiograph Report ---
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
--- NOTE | 2017-08-05 19:38 | Electrocardiograph Report ---
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
== END 2017-08-04 20:15 | disposition home health service (06) ==
LOC: EMEROO 13:20 → 3NENU 13:20
PROVIDERS: ADMIT Pediatrics; ATTEND Pediatrics